=== PATIENT | male | born 1980 | race Caucasian/White ===

== ENCOUNTER 2016-11-14 05:42 | Emergency (ER) | payer SELFPAY ==
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
[~2016-11-14 05:42] MED LIST: ERYTHROMYC3.5 GM OPT OD; FLEXERIL10 MG PO; IBUPROFEN800 MG PO; MOBIC15 MG PO; NO MEDICATIONS; VICODIN 5/1 TAB 5/50 PO
== END 2016-11-14 07:12 | disposition home or self-care (01) ==
LOC: CED 05:42
DX: S01.411A Laceration without foreign body of right cheek and temporomandibular area, initial encounter (principal); F17.210 Nicotine dependence, cigarettes, uncomplicated; Z79.899 Other long term (current) drug therapy; W22.8XXA Striking against or struck by other objects, initial encounter; Y92.89 Other specified places as the place of occurrence of the external cause
CPT/HCPCS: 12011; 70486; 90471; 90715; 99284